=== PATIENT | female | born 1970 | race Hispanic/Latino ===

== ENCOUNTER 2023-11-21 15:37 | Emergency (ER) | payer OTHER ==
[~2023-11-21] VITALS: Ht 160 cm; Wt 67.8 kg
[2023-11-21] MEDS ORDERED: OMEPRAZOLE20 MG PO (16:02)
[2023-11-21] MEDS ORDERED: HYDROmorphone HCL 1 MG/ML SYR IV ONE (16:15)
[2023-11-21] MEDS ORDERED: PANTOPRAZOLE SODIUM 40 MG/10 ML VIAL IV ONE (16:15)
[2023-11-21] MEDS ORDERED: ondansetron HCL 4 MG/2 ML VIAL IV ONE (16:15)
[2023-11-21 16:22] LABS: BILIRUBIN, URINE NEGATIVE (negative); BLOOD/HGB, URINE SMALL (Negative); KETONE, URINE NEGATIVE (Negative); LEUK ESTERASE, URINE NEGATIVE (negative); NITRITE, URINE NEGATIVE (negative)
[2023-11-21 16:23] LABS: BASOPHILS 0.2 % (0-2); EOSINOPHILS 1.9 % (0-6); HEMATOCRIT 43.1 % (35.0-50.0); LYMPHOCYTES 22.4 % (24-44); MCHC 34.9 g/dl (30-36); MCV 88.7 fl (81-99); MONOCYTES 8.3 % (0-12); NEUTROPHILS 67.2 % (39-80); PLATELET COUNT 281 K/uL (140-440); RBC 4.86 M/ul (4.3-5.7); RDW 13.5 (10.5-15.0)
[2023-11-21 16:29] LABS: EPITHELIAL CELLS, URINE SQUAMOUS 2+ /lpf (0-1+)
[2023-11-21 16:30] LABS: BACTERIA, URINE NONE SEEN /hpf (negative); CASTS, URINE NONE SEEN \\lpf; COLLECTION TYPE, URINE CLEAN CATCH; CRYSTALS, URINE NONE SEEN (0-1+); REFLEX CULTURE, URINE No (No)
[2023-11-21 16:37] LABS: ALBUMIN 4.1 g/dL (3.4-5.0); ALBUMIN/GLOBULIN RATIO 1.03 (1.1-2.4); ANION GAP 14.7 (7-21); BILIRUBIN, TOTAL 1.2 ng/dL (0.2-1.0); BUN/CREATININE RATIO 14.58 (6.0-28.6); CALCIUM 9.6 mg/dL (8.5-10.1); CREATININE, SERUM 0.96 mg/dL (0.55-1.02); POTASSIUM 3.7 mmol/L (3.5-5.1); PROTEIN, TOTAL 8.1 g/dL (6.4-8.2)
[2023-11-21] MEDS ORDERED: ONDANSETRON ODT8 MG PO (20:07)
[2023-11-21] MEDS ORDERED: DICYCLOMINE HCL10 MG PO (20:07)
[2023-11-21] MEDS ORDERED: NEXIUM 24HR20 M2 PO (20:07)
[2023-11-21] MEDS ORDERED: PERCOCET 5-3251 EACH PO (20:07)
[2023-11-21 20:20] VITALS: BP 117/85
== END 2023-11-21 20:20 | disposition home or self-care (01) ==
LOC: ED 15:37
PROVIDERS: Emergency Medicine
DX: R10.13 Epigastric pain (principal); Z79.899 Other long term (current) drug therapy
CPT/HCPCS: 36415; 74177; 76705; 80053; 81001; 83690; 85025; 96375; 99284-25; J1170; J2405; J2470; Q9967